=== PATIENT | male | born 1995 | race Caucasian/White ===

== ENCOUNTER 2021-11-01 08:54 | Emergency (ER) | payer SELFPAY ==
[~2021-11-01] VITALS: Wt 79.4 kg
[2021-11-01] MEDS ORDERED: VALTREX1000 MG PO (09:30)
[2021-11-02] MEDS ORDERED: CLEOCIN HCL150 MG PO (21:45)
== END 2021-11-01 09:34 | disposition home or self-care (01) ==
LOC: ED 08:54
DX: B00.2 Herpesviral gingivostomatitis and pharyngotonsillitis (principal)

== ENCOUNTER 2021-11-02 20:58 | Emergency (ER) | payer SELFPAY ==
[~2021-11-02] VITALS: Ht 182.8 cm; Wt 79.4 kg
[~2021-11-02 20:58] MED LIST: VALTREX1000 MG PO
[2021-11-02 21:29] LABS: BASO % 0.4 % (0.0-1.0); EOS # 0.2 10*3/uL (0.0-0.4); EOS % 3.6 % (1.0-4.0); HEMATOCRIT 45.1 % (42.0-52.0); LYMPH # 1.5 10*3/uL (1.3-4.4); LYMPH % 31.2 % (27.0-41.0); MEAN CELL VOLUME 87.4 fl (80.0-94.0); MEAN CORPUSCULAR HGB CONC 34.4 g/dl (33.0-37.0); MEAN PLATELET VOLUME 9.4 fl (9.6-12.3); MONO # 0.7 10*3/uL (0.1-1.0); MONO % 14.2 % (3.0-9.0); NEUT # 2.4 10*3/uL (2.3-7.9); NEUT % 50.4 % (47.0-73.0); PLATELET COUNT AUTOMATED 237 10*3/uL (130-400); RED BLOOD COUNT 5.16 10*6/uL (4.50-5.90); RED CELL DISTRI WIDTH 12.5 % (0-14.5); WHITE BLOOD COUNT 4.8 10*3/uL (4.8-10.8)
[2021-11-02 21:43] LABS: ALKALINE PHOSPHATASE 70 U/L (45-117); BUN 26 mg/dl (7-24); CHLORIDE 104 mmol/L (98-107); CREATININE 1.23 mg/dL (0.70-1.30); POTASSIUM 3.8 mmol/L (3.5-5.1); SGOT/AST 14 IU/L (3-35); SGPT/ALT 18 U/L (12-78); SODIUM 141 mmol/L (136-145); TOTAL PROTEIN 7.2 gm/dL (6.4-8.2)
[2021-11-02] MEDS ORDERED: CLEOCIN HCL150 MG PO (21:45)
== END 2021-11-02 23:00 | disposition home or self-care (01) ==
LOC: ED 20:58
PROVIDERS: Internal Medicine
DX: R55 Syncope and collapse (principal)